=== PATIENT | female | born 1955 | race Asian ===

== ENCOUNTER 2019-04-19 23:54 | Emergency (ER) | payer OTHER ==
[~2019-04-19] VITALS: Ht 160 cm; Wt 111.6 kg
[~2019-04-19 23:54] MED LIST: AMLO10TA PO; AMLO2.5T PO; BUSP5TAB2 PO; CELEXA20 MG PO; INSU100I2 SC; LEVO0.1224 PO; LISI20TA31 OR; LISITAB PO; METF500T PO; NEURONTIN; RANI150T78 PO; SIMV20TA2 PO
[2019-04-20 00:48] LABS: PLATELET COUNT 406 K/uL (152-353)
[2019-04-20 01:09] LABS: POTASSIUM 3.7 mmol/L (3.6-5.2); SODIUM 138 mmol/L (136-145)
[2019-04-20 01:30] VITALS: BP 103/59; TEMP 98.8
== END 2019-04-20 01:35 | disposition home or self-care (01) ==
LOC: ED 23:54
PROVIDERS: Hospitalist
DX: I16.0 Hypertensive urgency (principal); R00.0 Tachycardia, unspecified
CPT/HCPCS: 36415; 80053; 82550; 83880; 84484; 85027; 85379; 85610; 85730; 93005; 99283

== ENCOUNTER 2019-05-03 13:06 | Outpatient (CLI) | payer OTHER | END 2019-05-03 22:37 | disposition home or self-care (01) | LOC: MAMMO 13:06 | DX: Z12.31 Encounter for screening mammogram for malignant neoplasm of breast (principal) ==

== ENCOUNTER 2021-03-01 12:20 | Observation (INO) | payer OTHER ==
[2021-03-09 09:41] LABS: PARTIAL THROMBOPLASTIN TIME 21.2 SECONDS (24.5-33.6)
[2021-03-09 09:42] LABS: POTASSIUM 4.2 mmol/L (3.6-5.2); SODIUM 141 mmol/L (136-145)
[2021-03-09 09:44] LABS: PLATELET COUNT 289 K/uL (152-353)
== END 2021-03-02 13:58 | disposition home or self-care (01) ==
LOC: ED 12:20 → MED/SURG 14:45
PROVIDERS: ADMIT Hospitalist; ATTEND Internal Medicine
DX: R07.89 Other chest pain (principal); M94.0 Chondrocostal junction syndrome [Tietze]; I16.0 Hypertensive urgency; E11.42 Type 2 diabetes mellitus with diabetic polyneuropathy; Z86.73 Personal history of transient ischemic attack (TIA), and cerebral infarction without residual deficits; E03.8 Other specified hypothyroidism; H40.89 Other specified glaucoma
CPT/HCPCS: 36415; 80053; 82550; 82553; 84484; 85027; 85379; 85610; 85730; 87635; 93005; 96360; 96372; 96375; 99220; 99284; G0378; U0003

== ENCOUNTER 2021-06-19 13:46 | Outpatient (CLI) | payer OTHER | END 2021-06-19 19:57 | disposition home or self-care (01) | LOC: US 13:46 | PROVIDERS: ATTEND Family Medicine | DX: R60.0 Localized edema (principal); E11.65 Type 2 diabetes mellitus with hyperglycemia; R94.4 Abnormal results of kidney function studies; R20.2 Paresthesia of skin; I10 Essential (primary) hypertension ==

== ENCOUNTER 2021-07-28 08:47 | Outpatient (CLI) | payer OTHER | END 2021-07-28 18:55 | disposition home or self-care (01) | LOC: CT 08:47 | PROVIDERS: ATTEND Family Medicine | DX: R07.89 Other chest pain (principal); R10.84 Generalized abdominal pain; E11.65 Type 2 diabetes mellitus with hyperglycemia ==

== ENCOUNTER 2021-08-13 13:45 | Emergency (ER) | payer OTHER ==
[~2021-08-13] VITALS: Ht 160 cm; Wt 111.6 kg
[2021-08-13 15:32] VITALS: BP 155/87; TEMP 98.3
== END 2021-08-13 15:32 | disposition home or self-care (01) ==
LOC: ED 13:45
PROC: 2W38X1Z Immobilization of Right Upper Extremity using Splint (ICD-10-PCS; principal; 2021-08-13)
DX: S42.91XA Fracture of right shoulder girdle, part unspecified, initial encounter for closed fracture (principal); W18.39XA Other fall on same level, initial encounter; Y92.89 Other specified places as the place of occurrence of the external cause
CPT/HCPCS: 96372; 99283; J1170; J1885; J2360; J2405

== ENCOUNTER 2021-10-29 10:28 | Emergency (ER) | payer OTHER ==
[~2021-10-29] VITALS: Ht 160 cm; Wt 111.6 kg
[2021-10-29 11:40] VITALS: BP 163/80; TEMP 97.7
== END 2021-10-29 11:40 | disposition home or self-care (01) ==
LOC: ED 10:28
DX: M25.552 Pain in left hip (principal); M16.12 Unilateral primary osteoarthritis, left hip
CPT/HCPCS: 96372; 99283; J1885; J2360

== ENCOUNTER 2022-01-19 17:14 | Observation (INO) | payer OTHER ==
[~2022-01-19] VITALS: Ht 160 cm; Wt 117.0 kg
[2022-01-19] VITALS (23 sets, daily range): BP systolic 68–199; BP diastolic 33–99; TEMP 97.8–99; Ht 160 cm; Wt 117.0 kg
[2022-01-19 17:52] LABS: PLATELET COUNT 236 K/uL (152-353)
[2022-01-19 17:58] LABS: POTASSIUM 4.5 mmol/L (3.6-5.2)
[2022-01-19 18:28] LABS: PARTIAL THROMBOPLASTIN TIME 21.9 SECONDS (24.5-33.6)
[2022-01-20] VITALS: BP 139/60; TEMP 98.1
[2022-01-20 04:00] VITALS: BP 142/73; TEMP 98.1
[2022-01-20] MEDS ORDERED: LISI20TA11 PO (05:36)
[2022-01-20] MEDS ORDERED: EUTHYROX137 MCG PO (05:37)
[2022-01-20] MEDS ORDERED: FARXIGA10 MG PO (05:38)
[2022-01-20] MEDS ORDERED: HYDROCHLOROT12.5 M1 PO (05:42)
[2022-01-20] MEDS ORDERED: VITAMIN D50000 UNIT PO (05:44)
[2022-01-20] MEDS ORDERED: TIMOLOL MAL0.5 % OPTH (05:45)
[2022-01-20] MEDS ORDERED: LATANOPROST0.005 % OPTH (05:46)
[2022-01-20 05:52] LABS: POTASSIUM 3.8 mmol/L (3.6-5.2)
[2022-01-20 08:00] VITALS: BP 136/78; TEMP 98.5
[2022-01-20 12:00] VITALS: BP 155/84; TEMP 98.7
[2022-01-20 16:00] VITALS: BP 177/80; TEMP 97.6
[2022-01-20] MEDS ORDERED: METO-837 PO (17:05)
== END 2022-01-20 17:47 | disposition home or self-care (01) ==
LOC: ED 17:14 → MED/SURG 20:10
PROVIDERS: ADMIT Emergency Medicine; ATTEND Internal Medicine
DX: I13.0 Hypertensive heart and chronic kidney disease with heart failure and stage 1 through stage 4 chronic kidney disease, or unspecified chronic kidney disease (principal); I95.89 Other hypotension; E03.8 Other specified hypothyroidism; F43.10 Post-traumatic stress disorder, unspecified; E78.49 Other hyperlipidemia; Z86.73 Personal history of transient ischemic attack (TIA), and cerebral infarction without residual deficits; H40.89 Other specified glaucoma; R00.0 Tachycardia, unspecified; E11.22 Type 2 diabetes mellitus with diabetic chronic kidney disease; E11.65 Type 2 diabetes mellitus with hyperglycemia; N18.2 Chronic kidney disease, stage 2 (mild); I50.9 Heart failure, unspecified
CPT/HCPCS: 36415; 80048; 80053; 83880; 84443; 84484; 85027; 85610; 85730; 87635; 93005; 96360; 96365; 96375; 99220; 99285; G0378; J0360; J1265; J1815; J2405; J3490; U0003

== ENCOUNTER 2022-03-29 09:39 | Outpatient (CLI) | payer OTHER ==
[~2022-03-29 09:39] MED LIST changes: +EUTHYROX137 MCG PO; +FARXIGA10 MG PO; +HYDROCHLOROT12.5 M1 PO; +LATANOPROST0.005 % OPTH; +LISI20TA11 PO; +METO-837 PO; +TIMOLOL MAL0.5 % OPTH; +VITAMIN D50000 UNIT PO
== END 2022-03-29 19:09 | disposition home or self-care (01) ==
LOC: US 09:39
PROVIDERS: ATTEND Family Medicine
DX: R10.10 Upper abdominal pain, unspecified (principal)

== ENCOUNTER 2022-06-22 15:26 | Emergency (ER) | payer OTHER ==
[~2022-06-22] VITALS: Ht 160 cm; Wt 117.0 kg
[2022-06-22 15:35] VITALS: TEMP 97.1
[2022-06-22 16:45] VITALS: BP 108/78
== END 2022-06-22 16:56 | disposition home or self-care (01) ==
LOC: ED 15:26
DX: R10.84 Generalized abdominal pain (principal); G89.29 Other chronic pain
CPT/HCPCS: 93005; 99283

== ENCOUNTER 2022-11-08 13:04 | Outpatient (CLI) | payer OTHER | END 2022-11-08 20:51 | disposition home or self-care (01) | LOC: MRI 13:04 | PROVIDERS: ATTEND Psychiatry & Neurology Neurology | DX: M54.12 Radiculopathy, cervical region (principal); M54.14 Radiculopathy, thoracic region ==

== ENCOUNTER 2023-04-02 06:37 | Observation (INO) | payer OTHER ==
[~2023-04-02] VITALS: Ht 160 cm; Wt 106.8 kg
[2023-04-02] VITALS (13 sets, daily range): BP systolic 145–220; BP diastolic 68–122; TEMP 98.2–98.7; Ht 160 cm; Wt 106.8 kg
[2023-04-02 07:17] LABS: PLATELET COUNT 287 K/uL (152-353)
[2023-04-02 07:28] LABS: PARTIAL THROMBOPLASTIN TIME 25.3 SECONDS (23.9-36.7)
== END 2023-04-02 11:06 | disposition short-term general hospital (02) ==
LOC: ED 06:37 → MED/SURG 09:06
PROVIDERS: Family Medicine; ADMIT Nurse Practitioner; ATTEND Internal Medicine
DX: R47.81 Slurred speech (principal); R41.82 Altered mental status, unspecified; R51.9 Headache, unspecified; E11.9 Type 2 diabetes mellitus without complications; H40.89 Other specified glaucoma; E03.8 Other specified hypothyroidism; N18.9 Chronic kidney disease, unspecified; Z79.4 Long term (current) use of insulin; I12.9 Hypertensive chronic kidney disease with stage 1 through stage 4 chronic kidney disease, or unspecified chronic kidney disease
CPT/HCPCS: 36415; 36600; 80053; 80307; 81002; 82607; 82805; 83605; 84443; 84484; 85027; 85610; 85730; 93005; 96361; 96372; 96374; 96375; 99221; 99285; G0378; J0360; J1650; J1885; J2405; J3490